=== PATIENT | male | born 1975 | race Caucasian/White ===

== ENCOUNTER → 2016-07-12 | Outpatient (CLI) | payer MEDICAID | END | disposition disaster alternative care site (69) | LOC: GRAD 15:38 | DX: M25.461 Effusion, right knee (principal); M25.561 Pain in right knee; S83.241A Other tear of medial meniscus, current injury, right knee, initial encounter ==

== ENCOUNTER 2016-08-14 19:14 | Emergency (ER) | payer MEDICAID ==
--- NOTE | ~2016-08-14 | ER ---
PATIENT'S NAME: JANET HENRY [facility] AGE: 40 Y [address] ROOM: [place] [address] LOCATION: [facility] ADMIT DATE: 08/14/2016 ER/Outpatient Report DISCHARGE DATE: 08/14/2016 FAMILY PHYSICIAN: Ike Horne MD ATTENDING PHYSICIAN: Amber Betancur HISTORY OF PRESENT ILLNESS: A 40-year-old male who presents today with right knee pain. The patient states that he is status post surgery with Dr. Pacheco. He had a torn meniscus. He says that it was scraped and cleaned by Dr. Pacheco on 08/06/2016. He says that he does not have really any pain, 0/10 pain at this time, but he thinks it is more swollen, has thigh swelling and some swelling around the knee as well. Denies any pain though. The patient has a small bruise on the iliotibial area, lateral thigh, and says that he is concerned that that bruise in particular is a blood clot. He says that his son noticed it today. No other complaints at this time. No risk factors for DVT except for this recent surgery. He does not smoke. He has been mobile the whole time as well. PAST MEDICAL HISTORY: None. PAST SURGICAL HISTORY: Left hand appendectomy. SOCIAL HISTORY: He does not smoke, drink, or use any drugs. MEDICATIONS: See med list. ALLERGIES: NONE. REVIEW OF SYSTEMS: Reviewed by me and negative with the exception of those discussed in the HPI. PHYSICAL EXAMINATION: VITAL SIGNS: He is 6 feet tall, 121.2 kilos. Blood pressure is 144/67, heart rate 74, respiratory rate 18, temp is 98.3, and sats are 96% on room air. GENERAL: The patient is in no acute distress. He is alert, interactive, really focused on the TV. He is speaking in full sentences. HEART: His heart rate is regular rate and rhythm. LUNGS: His lungs sounds are clear. He is satting well on room air. No increased work of breathing. PATIENT'S NAME: JANET HENRY [facility] AGE: 40 Y [address] ROOM: [place] [address] LOCATION: [facility] ADMIT DATE: 08/14/2016 ER/Outpatient Report DISCHARGE DATE: 08/14/2016 FAMILY PHYSICIAN: Ike Horne MD ATTENDING PHYSICIAN: Amber Betancur EXTREMITIES: His lower extremity, he has some bruising around the sutures, but they look clean, dry, and intact. He also has a circular bruise that is nontender on the lateral distal thigh. There is some swelling of his thigh and some swelling of his calf area as well, but there is no tenderness and he has no edema. EMERGENCY ROOM COURSE: Ultrasound of lower extremity Doppler was done and negative for DVT. Discussed with the patient he will be sent home. IMPRESSION: Postoperative leg swelling. AMBER BETANCUR MD CAW/modl /[id number] d: 08/15/16 0150 t: 08/15/16 1822, OUTPATIENT REPORT
--- NOTE | ~2016-08-14 | ENPV ---
Vascular Lower Extremities DVT Study Procedure Demographics Patient Name JANET HENRY Date of Study 08/14/2016 Patient Number [id number] Gender Male Date of 1975 Age 40 Visit Number [id number] Height Accession Number [id number] Weight Room Number BSA BMI Referring David Clark MD Interpreting Anatoliy Choi MD Physician Physician Physician Ordering Physician David Clark MD County Administrator Site Safety Coordinator Luna Pires RVT Conclusions Summary No evidence of deep vein thrombosis or superficial thrombophlebitis in the right lower extremity . Procedure Type of Study: Veins:Lower Extremities DVT Study, Lower Extremity Right. Indications for Study:Swelling. Appropriate Use Criteria:9 Patient Status:STAT. Study Location:ER. Technical Quality:Adequate visualization. Velocities are measured in cm/s ; Diameters are measured in cm Right Lower Extremities DVT Study Measurements Right 2D and Doppler Measurements + + + + +------+------+ + !Location !Visualized!Compressibility!Thrombosis!Signal!Reflux!Reflux ! ! ! ! ! ! ! !(sec) ! + + + + +------+------+ + !GSV Thigh !Yes !Yes !None !Phasic!No ! ! + + + + +------+------+ + !Common !Yes !Yes !None !Phasic!No ! ! !Femoral ! ! ! ! ! ! ! + + + + +------+------+ + !Prox !Yes !Yes !None !Phasic!No ! ! !Femoral ! ! ! ! ! ! ! + + + + +------+------+ + !Mid Femoral!Yes !Yes !None !Phasic!No ! ! + + + + +------+------+ + !Dist !Yes !Yes !None !Phasic!No ! ! !Femoral ! ! ! ! ! ! ! + + + + +------+------+ + !Popliteal !Yes !Yes !None !Phasic!No ! ! + + + + +------+------+ + !Gastroc !Yes !Yes !None !Phasic!No ! ! + + + + +------+------+ + !PTV !Yes !Yes !None !Phasic!No ! ! + + + + +------+------+ + !Peroneal !Yes !Yes !None !Phasic!No ! ! + + + + +------+------+ + Left Lower Extremities DVT Study Measurements Left 2D and Doppler Measurements +---------+ + + +------+------+ + !Location !Visualized!Compressibility!Thrombosis!Signal!Reflux!Reflux (sec)! +---------+ + + +------+------+ + !GSV Thigh!Yes !Yes !None ! ! ! ! +---------+ + + +------+------+ + Signature dtt: AC MORALES dtzenia: 08/14/161958 Physician Self Edit
== END 2016-08-14 20:27 | disposition disaster alternative care site (69) ==
LOC: GMED 19:14
DX: M96.89 Other intraoperative and postprocedural complications and disorders of the musculoskeletal system (principal); M79.89 Other specified soft tissue disorders; Z90.49 Acquired absence of other specified parts of digestive tract; Z79.899 Other long term (current) drug therapy